=== PATIENT | female | born 1995 | race African-American/Black ===

== ENCOUNTER 2017-11-15 15:35 | Emergency (ER) | payer SELFPAY ==
--- NOTE | 2017-11-15 15:40 | ER Report ---
History and Physical Time Seen By MD: 15:39 Hx. of Stated Complaint: THROAT HURTS HPI/ROS This is a very pleasant 21-year-old female with no known medical problems. She was visiting her mom who is currently admitted to the hospital. She was eating cheesecake and all of a sudden had an episode of choking on the cheesecake. A code was actually called from the patient's mom's room. She never lost consciousness and never lost vital signs. He continued to have discomfort in her throat so was sent to the emergency department for evaluation. Upon arrival she was starting to feel much better, and was speaking within full sentences. She denies any chest pain or shortness of breath upon arrival. Remainder of the 14 system rev: Yes Allergies: Coded Allergies: No Known Allergies (Verified Allergy, Unknown, 11/15/17) Home Meds Reported Medications Insulin Glargine (LANTUS) 100 Unit/Ml Soln, 20 UNIT SUBQ DAILY, ML 11/15/17 Insulin Aspart (NOVOLOG) 100 Unit/1 Ml Cartridge, 100 UNIT SQ SS 11/15/17 Reviewed Nurses Notes: Yes Old Medical Records Reviewed: Yes Hx Smoking: No Smoking Status: Never Smoker Exposure to Second Hand Smoke?: No Hx Substance Use Disorder: No Hx Alcohol Use: No Constitutional Vital Sign - Last 24 Hours 11/15/17 11/15/17 15:36 15:59 Temp 98.1 Pulse 99 83 Resp 22 12 B/P (MAP) 147/95 137/89 (105) Pulse Ox 98 96 O2 Delivery Room Air Intake and Output 11/15/17 11/15/17 11/16/17 15:00 23:00 07:00 Intake Total 360 ml Balance 360 ml Physical Exam General Appearance: The patient is alert, has no immediate need for airway protection and no current signs of toxicity. HEENT: PERRL, o/p is clear Respiratory: Chest is non tender, lungs are clear to auscultation. Cardiac: regular rate and rhythm Gastrointestinal: Abdomen is soft and non tender, no masses, bowel sounds normal. Neck: Neck is supple and non tender. Extremities have full range of motion and are non tender. Skin: No rashes or lesions. DIFFERENTIAL DIAGNOSIS: After history and physical exam differential diagnosis was considered for food impaction, aspiration, allergic reaction Medical Decision Making ED Course/Re-evaluation ED Course 21-year-old female with no medical problems was brought to the emergency department after an episode of choking on cheesecake. She is currently asymptomatic. There was no loss of consciousness, and no maneuvers performed to remove food. She was able to the fluid on her own. She has no feeling of food impaction. No wheezing or coughing to suggest aspiration. This is not consistent with an allergic reaction. She is taking by mouth in the emergency department and at this time is requesting to go back to her mom's room to visit with her she is ill Decision to Disposition Date: Nov 15, 2017 Decision to Disposition Time: 16:04 Depart Departure Latest Vital Signs Vital Signs Date Time Temp Pulse Resp B/P (MAP) Pulse Ox O2 Delivery O2 Flow Rate FiO2 11/15/17 15:59 83 12 137/89 (105) 96 11/15/17 15:36 98.1 Room Air Impression: Primary Impression: Choking episode Condition: Improved Disposition: HOME OR SELF-CARE NANO LANGFORD MD Nov 15, 2017 15:40
[2017-11-15] MEDS ORDERED: LANI SUBQ (15:43)
[2017-11-15] MEDS ORDERED: INSU100C14 SQ (15:43)
[2017-11-15 15:59] VITALS: BP 137/89
== END 2017-11-15 16:17 | disposition home or self-care (01) ==
LOC: ER 15:58
DX: T17.928A Food in respiratory tract, part unspecified causing other injury, initial encounter (principal); X58.XXXA Exposure to other specified factors, initial encounter
CPT/HCPCS: 99282